=== PATIENT | male | born 1970 | race Caucasian/White ===

== ENCOUNTER → 2019-09-11 | Outpatient (CLI) | payer OTHER ==
[~2019-09-11] MED LIST: AMBIEN5 MG PO; CELEBREX100 MG/1 C PO; DULOXETINE HCL30 MG PO; HUMIRA PEN40 MG/0.4 SUBQ; MINIPRESS2 MG PO
== END | disposition home or self-care (01) ==
LOC: M.PC 08:00
DX: M54.5 Low back pain (principal); M51.16 Intervertebral disc disorders with radiculopathy, lumbar region; M47.26 Other spondylosis with radiculopathy, lumbar region; Z98.890 Other specified postprocedural states; Z79.899 Other long term (current) drug therapy

== ENCOUNTER → 2019-09-25 | Outpatient (CLI) | payer OTHER | LOC: M.PC 05:27 | DX: M47.26 Other spondylosis with radiculopathy, lumbar region (principal); L40.59 Other psoriatic arthropathy ==